=== PATIENT | male | born 1955 | race Caucasian/White ===

== ENCOUNTER → 2016-06-04 | Outpatient (CLI) | payer MEDICAID, MEDICARE, OTHER ==
[~2016-06-04] MED LIST: ALBU17AE23 IH; ALBU8.5H2 IH; ALBU8.5H2 INH; AMLO10TA PO; AMLO5TAB2 PO; ASP81TEC PO; AZIT250T PO; AZIT250T5 PO; CLPD75T PO; CYCL10TA45 PO; DILT120C PO; DILT120C8 PO; DILT120C85 PO; DIPH25TA82 PO; DOXY-233 PO; FLUT1DIS26 IH; HYDR-3816 PO; IPRA3AMP11 INH; ISM30TCR PO; LACT20SO2 PO; LEVO750T24 PO; LEVO75TA6 PO; LISI1TAB10 PO; LISI1TAB17 PO; LISI20TA PO; LISI40TA PO; LSNP10T PO; LSRT50T PO; LVT.05T PO; Levofloxacin PO; METO-274 PO; METO100T2 PO; MONT10TA24 PO; MTP100TCR PO; MTP50T PO; NCT14P TD; NEBULIZER TREATMENT NEB; NITR0.4T SL; NITR0.4T12 SL; NTR.4SL SL; OMEP20CA12 PO; OXC5T PO; OXYM30SP70 NSEACH; PNV1TABL61 PO; POLY17PO23 PO; POTA10CA43 PO; POTA10TA10 PO; POTA10TA36 PO; PRD10T PO; PRD20T PO; Polyethylene Glycol PO; RT-ALBUINH IH; SENN1TAB76 PO; SIMV10TA3 PO; SIMV40TA4 PO; SMV10T PO; SULF-222 PO
--- NOTE | 2016-06-04 12:15 | Diagnostic Imaging Report ---
PROCEDURE: US abdomen complete. TECHNIQUE: Multiple real-time grayscale images were obtained over the abdomen in various projections. INDICATION: Ascites. History of hepatocellular carcinoma. FINDINGS: There are multiple hepatic masses seen in the liver with difficulty to measure accurately as the masses appear to be confluent and extensive. The gallbladder appears contracted with suggestion of a shadowing gallstone. The pancreas is obscured by bowel gas. The main portal vein appears patent with hepatopetal flow. No ascites seen. The aorta and IVC are obscured by bowel gas. The spleen is 10.1 cm in length, normal. The right kidney is 9.6 and the left kidney is 10.7 cm in length. There is no hydronephrosis. There are simple cysts in the lower pole of the right kidney up to 1.7 cm in size. IMPRESSION: 1. Numerous masses seen in the liver. Recurrence of hepatocellular carcinoma is suspected. CT evaluation with liver mass protocol is suggested. 2. Contracted gallbladder with gallstones seen. Dictated by: Dictated on workstation # [id number]
== END ==
LOC: RAD 09:00
PROVIDERS: ATTEND Nurse Practitioner Family
DX: R18.8 Other ascites (principal); C22.8 Malignant neoplasm of liver, primary, unspecified as to type
CPT/HCPCS: 76700

== ENCOUNTER 2016-07-03 09:15 | Outpatient (RCR) | payer MEDICARE, MEDICAID ==
[2016-07-03 09:40] LABS: BASOPHILS % (AUTO) 0 % (0-10); EOSINOPHILS # (AUTO) 0.3 10^3/uL (0.0-0.3); EOSINOPHILS % (AUTO) 1 % (0-10); LYMPHOCYTES # (AUTO) 1.9 X 10^3 (1.0-4.0); LYMPHOCYTES % (AUTO) 9 % (12-44); MEAN CORPUSCULAR HEMOGLOBIN 28 PG (25-34); MEAN CORPUSCULAR HGB CONC 31 G/DL (32-36); MEAN CORPUSCULAR VOLUME 91 FL (80-99); MEAN PLATELET VOLUME 9.3 FL (7.4-10.4); MONOCYTES # (AUTO) 2.5 X 10^3 (0.0-1.0); MONOCYTES % (AUTO) 12 % (0-12); NEUTROPHILS # (AUTO) 16.4 X 10^3 (1.8-7.8); NEUTROPHILS % (AUTO) 78 % (42-75); PLATELET COUNT 366 10^3/uL (130-400); RED BLOOD COUNT 3.38 10^6/uL (4.35-5.85); RED CELL DISTRIBUTION WIDTH 15.5 % (10.0-14.5); WHITE BLOOD COUNT 21.1 10^3/uL (4.3-11.0)
[2016-07-03 10:14] LABS: ALANINE AMINOTRANSFERASE 44 U/L (0-55); ALBUMIN 2.9 G/DL (3.2-4.5); ANION GAP 13 MMOL/L (5-14); ASPARTATE AMINO TRANSFERASE 129 U/L (5-34); BILIRUBIN,TOTAL 1.8 MG/DL (0.1-1.0); BLOOD UREA NITROGEN 14 MG/DL (7-18); BUN/CREATININE RATIO 14; CALCIUM 9.2 MG/DL (8.5-10.1); CARBON DIOXIDE 22 MMOL/L (21-32); CHLORIDE 92 MMOL/L (98-107); CREATININE SERUM 0.99 MG/DL (0.60-1.30); GFR ESTIMATED > 60; GLUCOSE 131 MG/DL (70-105); POTASSIUM 4.6 MMOL/L (3.6-5.0); SODIUM 127 MMOL/L (135-145); TOTAL PROTEIN 7.7 G/DL (6.4-8.2)
[2016-07-03 11:55] LABS: BILIRUBIN,URINE NEGATIVE (NEGATIVE); KETONES,URINE NEGATIVE (NEGATIVE); LEUKOCYTE ESTERASE ,URINE NEGATIVE (NEGATIVE); NITRITE,URINE NEGATIVE (NEGATIVE); PH,URINE 6 (5-9); PROTEIN,URINE 2+ (NEGATIVE); UROBILINOGEN,URINE 8 MG/DL (NORMAL)
[2016-07-03 12:15] LABS: SQUAMOUS EPITHELIAL CELL,UR RARE /HPF
== END 2016-10-01 | disposition home or self-care (01) ==
LOC: ONC 09:15
PROVIDERS: ATTEND Internal Medicine Hematology & Oncology
DX: C22.0 Liver cell carcinoma (principal); K70.9 Alcoholic liver disease, unspecified; K70.10 Alcoholic hepatitis without ascites; B19.20 Unspecified viral hepatitis C without hepatic coma; F10.21 Alcohol dependence, in remission; J44.9 Chronic obstructive pulmonary disease, unspecified; N18.9 Chronic kidney disease, unspecified; E03.9 Hypothyroidism, unspecified; Z87.891 Personal history of nicotine dependence; Z79.899 Other long term (current) drug therapy
CPT/HCPCS: 36415; 80053; 81000; 85025; 87804; 99213

== ENCOUNTER → 2016-07-03 | Outpatient (CLI) | payer MEDICARE, MEDICAID ==
--- NOTE | 2016-07-03 10:58 | Diagnostic Imaging Report ---
EXAMINATION: PA and lateral views of the chest. INDICATION: High fever. Cough. FINDINGS: There is interstitial thickening which appears chronic. No focal consolidation. No pleural effusion. The heart size is normal. No pneumothorax. Old right posterior upper rib fractures are seen. IMPRESSION: No acute process. Dictated by: Dictated on workstation # [id number]
== END ==
LOC: RAD 10:18
PROVIDERS: ATTEND Internal Medicine Hematology & Oncology
DX: R50.9 Fever, unspecified (principal); R05 Cough
CPT/HCPCS: 71020

== ENCOUNTER → 2016-07-05 | Outpatient (CLI) | payer MEDICARE, MEDICAID ==
[~2016-07-05] MED LIST changes: +BARIUM SUSPENSION 2.1% (VANILLA SILQ) 450 ML PO ONE; +CATHETER FLUSH 10 ML SYR IV PRN; +IOHEXOL 350 MG/ML 100 ML (OMNIPAQUE 350) VIAL IV ONE; +NS 100 ML (IVPB) BAG IV ONE
--- NOTE | 2016-07-05 14:27 | Diagnostic Imaging Report ---
PROCEDURE: CT of the chest and pelvis with contrast and CT of the abdomen with and without contrast. TECHNIQUE: Precontrast acquisitions were acquired through the abdomen. Multiple contiguous axial images were obtained through the chest, abdomen and pelvis after administration of intravenous contrast. INDICATION: Hepatocellular carcinoma. Back pain. FINDINGS: CT chest: The lungs demonstrate emphysema changes. There is a nonspecific groundglass nodule seen in the central aspect of the lingula anterior to the left infrahilar region not seen on the previous study. There is also a nodule along the minor fissure measuring 6 mm in size. These are nonspecific. There is no pleural or pericardial effusion. There is no mediastinal mass or significantly enlarged lymph nodes. No hilar or axillary lymphadenopathy. The osseous structures demonstrate multiple old rib fractures. In the spine, there are multiple thoracic and lumbar spine level compression fractures new from 03/08/2015. Some of these fractures could be pathologic given the heterogenous appearance of the bone density with lucencies. This could be, however, related to age and osteopenic change. No definitive destructive mass is identified. There is diffuse mild thickening in the esophagus may relate to esophagitis. CT abdomen and pelvis: The liver demonstrates development of innumerable diffuse masses. This includes a large mass near the central aspect of the liver inferiorly within segment 4B measuring 4.8 x 4.6 cm and craniocaudally 5.4 cm. In the tiffanie hepatis anterior to the pancreatic head, there is a mass measuring 5.5 x 4 cm compatible with a lymph node mass. Another enlarged lymph nodes mass in the tiffanie hepatis measures 2.7 x 4 cm. The main portal vein is still patent although it is small in caliber. Previously treated area of tumor in the posterior aspect of the right hepatic lobe continues to shrink in size now measuring 3.3 x 2.3 cm compatible with post treatment necrosis. The spleen is normal in size. The adrenals, the pancreas appear unremarkable. The gallbladder demonstrates a stone with gallbladder wall thickening and underdistention of the gallbladder lumen. The colon and small bowel loops are normal in caliber with no bowel obstruction. There is no ascites. The right kidney demonstrates moderate to severe atrophy and the left kidney has compensatory hypertrophy. No hydronephrosis. Multiple cysts are seen in both kidneys. The urinary bladder appears unremarkable. The prostate appears slightly heterogenous with nonspecific central calcifications. It is 4 cm in transverse dimension, near the upper limits of normal. The abdominal aorta is normal in caliber. There is an enlarged lymph node measuring 1.7 cm to the left of the proximal SMA and the root of the mesentery. No other mesenteric lymph nodes seen. Small fat-containing umbilical hernia is noted. IMPRESSION: CT chest: 1. Nonspecific pulmonary nodules anterior to the left infrahilar region and along the minor fissure. Followup exam suggested. 2. Thickening in the esophagus could relate to esophagitis. 3. In the thoracic and lumbar spine, there are multiple compression fractures new from 02/2015 exam. MRI evaluation of the spine can help assess for acute components and check for possible underlying bone tumor involvement. CT abdomen and pelvis: There are innumerable masses in the liver and enlarged lymph node masses in the tiffanie hepatis and upper abdomen likely related to HCC recurrence. Dictated by: Dictated on workstation # [id number]
== END ==
LOC: RAD 09:01
PROVIDERS: ATTEND Internal Medicine Hematology & Oncology
DX: R91.8 Other nonspecific abnormal finding of lung field (principal); R59.0 Localized enlarged lymph nodes; R16.0 Hepatomegaly, not elsewhere classified; K22.9 Disease of esophagus, unspecified; C22.0 Liver cell carcinoma; B18.2 Chronic viral hepatitis C
CPT/HCPCS: 71260; 74178

== ENCOUNTER → 2016-07-17 | Outpatient (CLI) | payer MEDICARE, MEDICAID ==
[~2016-07-17] MED LIST changes: -BARIUM SUSPENSION 2.1% (VANILLA SILQ) 450 ML PO ONE; -CATHETER FLUSH 10 ML SYR IV PRN; +GADOBUTROL 7.5 MMOL/7.5 ML (GADAVIST) VIAL IV ONE; -IOHEXOL 350 MG/ML 100 ML (OMNIPAQUE 350) VIAL IV ONE; -NS 100 ML (IVPB) BAG IV ONE
--- NOTE | 2016-07-17 16:30 | Diagnostic Imaging Report ---
PROCEDURE: MRI lumbar spine with and without contrast. TECHNIQUE: Multiplanar, multisequence MRI of the lumbar spine was performed with and without contrast. INDICATION: Low back pain. History of hepatocellular carcinoma. 7 mL of Gadovist is administered intravenously. FINDINGS: There are multilevel compression fractures seen in the lumbar spine. These are for the most part chronic and not associated with significant bone marrow edema or enhancement. At the L3 level however there is a 30% compression fracture with associated the bone marrow edema along the inferior endplate. This is associated with post contrast enhancement. The pattern of enhancement is curvilinear and is mostly along the inferior endplate. It is not associated with a globular appearance that would be expected with tumor and is not associated with extraosseous soft tissue mass. There is no significant change in the posterior contour of the vertebral body at this level. There is also an old fracture of S2 vertebral body with the deformity not associated with significant bone marrow edema. On post contrast images, the area appears hyperintense; however, it is questioned to be artifactual secondary to inhomogeneous fat saturation towards the margin of the [id number]-[id number]. The cauda equina and conus medullaris appear grossly unremarkable. T12-L1: There is a mild disc bulge with no significant spinal canal or foraminal stenosis. L1-L2: No disc herniation. There is a mild posterior bulge from the old fracture related to the posterior wall of the L2 vertebral body resulting in [id number] central canal stenosis reducing the AP dimension of the canal to 8.8 mm. No lateral recess stenosis. No significant foraminal narrowing. L2-L3: No significant disc herniation; however, the lower aspect of L2 vertebral body posterior margin bulges slightly posteriorly resulting in mild spinal canal stenosis reducing the AP dimension of the canal to 9.6 mm. The foramina demonstrate no significant stenosis. L3-L4: There is no disc herniation. There is bilateral moderate facet arthropathy. No central canal or lateral recess stenosis. Slight posterior bulge from upper posterior L4 vertebral body results in mild spinal canal stenosis reducing the AP dimension of the canal to 9 mm. No significant foraminal stenosis. L4-L5: No disc herniation. There is aspj-cq-prveuntv facet arthropathy. No central canal stenosis. There is bilateral zaoj-pf-wavxmrhl lateral recess stenosis. The foramina demonstrate ryaz-es-hdjvjxzw stenosis bilaterally. L5-S1: No disc herniation. No central canal or lateral recess stenosis. The foramina demonstrate no significant narrowing. IMPRESSION: There are multilevel compression fractures in the lumbar spine. These are mostly old except for L3 compression fracture with bone marrow edema and enhancement along the inferior endplate in a pattern in favor of osteoporotic etiology rather than metastatic disease. This is probably the source of patient's pain, as other fractures are old. Other findings as above. The findings were discussed with Dr. Osborne by Dr. Barragan at the time of the dictation. Dictated by: Dictated on workstation # [id number]
== END ==
LOC: RAD 13:12
PROVIDERS: ATTEND Internal Medicine Hematology & Oncology
DX: S32.030A Wedge compression fracture of third lumbar vertebra, initial encounter for closed fracture (principal); C22.0 Liver cell carcinoma; X58.XXXA Exposure to other specified factors, initial encounter; Y99.8 Other external cause status
CPT/HCPCS: 72158

== ENCOUNTER → 2016-07-30 | Outpatient (CLI) | payer MEDICARE, MEDICAID ==
[~2016-07-30] MED LIST changes: -GADOBUTROL 7.5 MMOL/7.5 ML (GADAVIST) VIAL IV ONE
== END ==
LOC: PREOP 05:39
PROVIDERS: ATTEND Surgery
DX: Z01.818 Encounter for other preprocedural examination (principal); R13.10 Dysphagia, unspecified